=== PATIENT | male | born 1960 | race African-American/Black ===

== ENCOUNTER 2022-10-01 23:25 | Inpatient (IN) | payer BC, SELFPAY ==
[2022-10-02] MEDS ORDERED: Dexamethasone 10 MG/ML VIAL ONE (00:01)
[2022-10-02] MEDS ORDERED: cefTRIAXone\\ROCEPHIN 2 GM VIAL ONE (00:01)
[2022-10-02] MEDS ORDERED: Magnesium 2 GM/50 ML BAG (IN WATER) ONE (00:01)
[2022-10-02] MEDS ORDERED: Azithromycin 500 MG VIAL ONE (00:01)
[2022-10-02 00:39] LABS: #Lymphocytes 0.7 thou/uL (1.20-3.40); #Monocytes 1.2 thou/uL (0.11-0.59); #Neutrophils 7.2 thou/uL (1.40-6.50); %Basophils 0.1 % (0.0-1.0); %Eosinophils 0.1 % (0.0-10.0); %Monocytes 12.7 % (0.0-10.0); %Neutrophils 79.1 % (42.0-75.0); Hemoglobin 14.7 g/dL (14.0-18.0); Mean Corpuscular HGB CONC 31.8 g/dL (32.0-36.0); Mean Corpuscular Hemoglobin 29.4 pg (27.0-31.0); Mean Corpuscular Volume 92.4 fl (78.0-98.0); Mean Platelet Volume 7.2 fL (7.4-10.4); Platelet Count 182 10x3/uL (130-400); White Blood Cell (WBC) Count 9.1 10x3/uL (4.8-10.8)
[2022-10-02 01:04] LABS: ALT (SGPT) 37 U/L (8-55); AST (SGOT) 50 U/L (5-34); Albumin 4.2 g/dL (3.5-5.0); Alkaline Phosphatase 100 U/L (40-110); Anion Gap 18 mmol/L (10-20); BUN (Urea Nitrogen) 14 mg/dL (8.4-25.7); Bilirubin, Total 2.5 mg/dL (0.2-1.2); CK (CPK) 453 U/L (30-200); Calc. Creatinine Clearance 0 mL/min (70-130); Calcium 9.2 mg/dL (7.8-10.44); Carbon Dioxide 21 mmol/L (22-29); Chloride 101 mmol/L (98-107); Estimated GFR 71; Globulin 2.9 g/dL (2.4-3.5); Glucose 111 mg/dL (70-105); Lipase 22 U/L (8-78); Potassium 4.3 mmol/L (3.5-5.1); Protein, Total 7.1 g/dL (6.0-8.3); Sodium 136 mmol/L (136-145)
[2022-10-02 02:06] LABS: CKMB 1.7 ng/mL (0-6.6)
[2022-10-02] MEDS ORDERED: Aspirin Chewable 81 MG TAB ONE (02:14)
[2022-10-02 02:23] LABS: Bacteria/HPF None Seen HPF (None Seen); Bilirubin Negative (Negative); Blood, Urine Negative (Negative); Clarity Clear (Clear); Glucose, Urine (Dipstick) Normal (Negative); Ketone, Urine Trace mg/dL (Negative); Leukocyte Negative Leu/uL (Negative); Nitrite Negative (Negative); Protein, Urine (Dipstick) 100 mg/dL (Neg-Trace); RBC/HPF 0-3 HPF (0-3); Squamous Epithelial 0-3 HPF (0-3); Urobilinogen Normal mg/dL (Less than 2); WBC/HPF 0-3 HPF (0-3); pH, Urine 5.5 (5.0-9.0)
[2022-10-02 03:45] LABS: Lactic Acid 1.6 mmol/L (0.5-2.2)
[2022-10-02 04:07] LABS: SARS-CoV-2 NAA Rapid Test Not Detected (NotDetected)
[2022-10-02] MEDS ORDERED: Oseltamivir 75 MG CAP PO SCH ×2 (04:30→09:00)
[2022-10-02] MEDS ORDERED: Acetaminophen 650 MG Suppository PR PRN (04:48)
[2022-10-02] MEDS ORDERED: Ondansetron PF 4 MG/2 ML Vial IVP PRN (04:48)
[2022-10-02] MEDS ORDERED: Ondansetron ODT 4 MG TAB PO PRN (04:48)
[2022-10-02] MEDS ORDERED: Acetaminophen 325 MG TAB PO PRN (04:48)
[2022-10-02 04:50] LABS: Actual Bicarbonate (HCO3a) 25.9 mEq/L (22-28); Analyzer IN Cardio ER; Base Excess (BEa) 1.3 mEq/L (-2.0 to +3.0); CO2 Tension 41.1 mmHg (35.0-45.0); Calcium, Ionized (arterial) 1.13 mmol/L (1.12-1.30); Carboxyhemoglobin (COHb) 0.6 gm% (0.0-3.0); Hemoglobin (Hb) 14.9 g/dL (14.0-18.0); Potassium - ABG Lab 4.06 mmol/L (3.70-5.30); pH, Arterial 7.42 (7.35-7.45)
[2022-10-02 04:53] LABS: ALV-art Gradient 33.355 mmHg (0-20); Puncture Site LRA
[2022-10-02 05:23] LABS: Troponin I 0.108 ng/mL (< 0.028)
[2022-10-02] MEDS ORDERED: Furosemide 40 MG/4 ML VIAL SLOW IVP SCH (07:00)
[2022-10-02 07:12] VITALS: BMI 31.1
[2022-10-02 07:48] LABS: Calcium 8.4 mg/dL (7.8-10.44); Chloride 104 mmol/L (98-107); Potassium 4.1 mmol/L (3.5-5.1); Sodium 138 mmol/L (136-145)
[2022-10-02 07:49] LABS: Glucose 134 mg/dL (70-105)
[2022-10-02 07:50] LABS: Anion Gap 15 mmol/L (10-20); Carbon Dioxide 23 mmol/L (22-29)
[2022-10-02 07:52] LABS: Calc. Creatinine Clearance 117 mL/min (70-130); Estimated GFR 90
[2022-10-02 07:53] LABS: BUN (Urea Nitrogen) 14 mg/dL (8.4-25.7)
[2022-10-02 08:42] LABS: Troponin I 0.094 ng/mL (< 0.028)
[2022-10-02] MEDS ORDERED: Enoxaparin Sodium 100 MG/ML SYRINGE SC SCH (09:00)
[2022-10-02] MEDS ORDERED: Enoxaparin Sodium 40 MG/0.4 ML SYRINGE SC SCH (09:00)
[2022-10-02] MEDS: Aspirin 81 mg Enteric Coated Tablet PO SCH (09:32)
[2022-10-02] MEDS ORDERED: Iopamidol-370 76% 500 ML 1 ML ONE (10:18)
[2022-10-02 12:51] LABS: Amphetamine Not Detected (NotDetected); Barbiturates Screen Not Detected (NotDetected); Benzodiazepine Screen Not Detected (NotDetected); Cocaine Metabolite Screen Not Detected (NotDetected); Methadone Not Detected (NotDetected); Methamphetamine Not Detected (NotDetected); Opiate Screen Not Detected (NotDetected); Oxycodone Screen Not Detected (NotDetected); Phencyclidine (PCP) Not Detected (NotDetected); THC/Cannabinoid Screen Not Detected (NotDetected); Tricyclic Screen Not Detected (NotDetected)
[2022-10-02] MEDS: Oseltamivir 75 MG CAP PO SCH (21:27)
[2022-10-03 04:21] LABS: #Lymphocytes 1.2 thou/uL (1.20-3.40); #Monocytes 1.1 thou/uL (0.11-0.59); #Neutrophils 5.9 thou/uL (1.40-6.50); %Basophils 0.1 % (0.0-1.0); %Lymphocytes 14.7 % (21.0-51.0); %Monocytes 13.6 % (0.0-10.0); %Neutrophils 71.6 % (42.0-75.0); Hemoglobin 14.9 g/dL (14.0-18.0); Mean Corpuscular HGB CONC 31.2 g/dL (32.0-36.0); Mean Corpuscular Hemoglobin 29.5 pg (27.0-31.0); Mean Corpuscular Volume 94.4 fl (78.0-98.0); Mean Platelet Volume 7.5 fL (7.4-10.4); Platelet Count 171 10x3/uL (130-400); RBC Distribution Width 13.4 % (11.5-14.5); Red Blood Cell (RBC) Count 5.05 mill/uL (4.70-6.10); White Blood Cell (WBC) Count 8.3 10x3/uL (4.8-10.8)
[2022-10-03 04:42] LABS: Anion Gap 14 mmol/L (10-20); BUN (Urea Nitrogen) 19 mg/dL (8.4-25.7); Calc. Creatinine Clearance 134 mL/min (70-130); Calcium 8.6 mg/dL (7.8-10.44); Carbon Dioxide 24 mmol/L (22-29); Cardiac Risk 4.2 (Less than 4.5); Chloride 103 mmol/L (98-107); Cholesterol 143 mg/dl (< 200 Desired); Estimated GFR 100; Glucose 107 mg/dL (70-105); HDL Cholesterol 34 mg/dL (>60 Neg Risk); LDL Cholesterol, Calculated 97 mg/dL; Potassium 4.6 mmol/L (3.5-5.1); Sodium 136 mmol/L (136-145); Triglycerides 60 mg/dL (Less than 150)
[2022-10-03] MEDS: Aspirin 81 mg Enteric Coated Tablet PO SCH (11:04)
[2022-10-03] MEDS: Enoxaparin Sodium 40 MG/0.4 ML SYRINGE SC SCH (11:04)
[2022-10-03] MEDS: Oseltamivir 75 MG CAP PO SCH ×2 (11:04→20:21)
[2022-10-03] MEDS: Atorvastatin Calcium 40 MG TAB PO SCH (20:21)
[2022-10-04] MEDS: Enoxaparin Sodium 40 MG/0.4 ML SYRINGE SC SCH (09:18)
[2022-10-04] MEDS: Aspirin 81 mg Enteric Coated Tablet PO SCH (09:18)
[2022-10-04] MEDS: Oseltamivir 75 MG CAP PO SCH ×2 (09:18→20:14)
[2022-10-04] MEDS ORDERED: Bisacodyl 5 MG TAB PO PRN (09:24)
[2022-10-04] MEDS: Carvedilol 3.125 MG TAB PO SCH (16:04)
[2022-10-04] MEDS: Atorvastatin Calcium 40 MG TAB PO SCH (20:14)
[2022-10-05] MEDS: Aspirin 81 mg Enteric Coated Tablet PO SCH (10:28)
[2022-10-05] MEDS: Enoxaparin Sodium 40 MG/0.4 ML SYRINGE SC SCH (10:29)
[2022-10-05] MEDS: Oseltamivir 75 MG CAP PO SCH ×2 (10:29→21:46)
[2022-10-05] MEDS: Carvedilol 3.125 MG TAB PO SCH ×2 (10:29→17:09)
[2022-10-05] MEDS: Atorvastatin Calcium 40 MG TAB PO SCH (21:46)
[2022-10-06] MEDS ORDERED: Lisinopril 2.5 MG TAB PO SCH ×2 (09:00→18:00)
[2022-10-06] MEDS: Aspirin 81 mg Enteric Coated Tablet PO SCH (09:32)
[2022-10-06] MEDS: Oseltamivir 75 MG CAP PO SCH ×2 (09:32→20:17)
[2022-10-06] MEDS: Carvedilol 3.125 MG TAB PO SCH ×2 (09:32→16:48)
[2022-10-06] MEDS: Enoxaparin Sodium 40 MG/0.4 ML SYRINGE SC SCH (16:48)
[2022-10-06] MEDS: Atorvastatin Calcium 40 MG TAB PO SCH (20:17)
[2022-10-07] MEDS ORDERED: Furosemide 40 MG TAB PO SCH (07:30)
[2022-10-07] MEDS: Enoxaparin Sodium 40 MG/0.4 ML SYRINGE SC SCH (08:35)
[2022-10-07] MEDS: Carvedilol 3.125 MG TAB PO SCH (08:36)
[2022-10-07] MEDS: Oseltamivir 75 MG CAP PO SCH (08:36)
[2022-10-07] MEDS: Aspirin 81 mg Enteric Coated Tablet PO SCH (08:36)
[2022-10-07] MEDS ORDERED: Lisinopril 5 MG TAB PO SCH (09:00)
[2022-10-07 11:03] VITALS: BP 112/56; TEMP 97.8
== END 2022-10-07 14:12 | disposition home or self-care (01) | DRG 871 ==
LOC: ERS 23:25 → 2NO 10-02 04:11
PROVIDERS: ADMIT Internal Medicine; ATTEND Internal Medicine
DX: A41.89 Other specified sepsis (principal); Z20.822 Contact with and (suspected) exposure to COVID-19; G93.41 Metabolic encephalopathy; I21.A1 Myocardial infarction type 2; J96.00 Acute respiratory failure, unspecified whether with hypoxia or hypercapnia; I50.43 Acute on chronic combined systolic (congestive) and diastolic (congestive) heart failure; I42.9 Cardiomyopathy, unspecified; J10.1 Influenza due to other identified influenza virus with other respiratory manifestations; E78.00 Pure hypercholesterolemia, unspecified; I08.3 Combined rheumatic disorders of mitral, aortic and tricuspid valves; Z91.199 Patient's noncompliance with other medical treatment and regimen due to unspecified reason; Z79.899 Other long term (current) drug therapy
CPT/HCPCS: 36415; 36416; 36600; 70450; 71045; 71275; 76705; 80048; 80053; 80061; 80306; 81003; 81015; 82140; 82550; 82553; 82805; 83605; 83690; 83735; 83880; 84484; 85025; 85379; 87040; 93005; 93010; 93306; 94640; 96365; 96367; 96368; 96375; J0456; J0696; J1100; J1650; J3475; J7620; Q9967